=== PATIENT | male | born 1970 | race Caucasian/White ===

== ENCOUNTER 2023-05-27 07:53 | Emergency (ER) | payer BC, SELFPAY ==
[2023-05-27 08:12] VITALS: BP 148/104
[2023-05-27 08:24] VITALS: BMI 33.6
--- NOTE | 2023-05-27 08:30 | ED.CVA ---
History of Present Illness
<ANTHONY Reyes - Last Filed: 05/27/23 12:07>
General
Chief Complaint: CVA/TIA Symptoms
Source: patient
Exam Limitations: none
Time Seen by Provider: 05/27/23 08:20
Onset of Stroke Symptoms
Onset of symptoms known: No
Time pt last seen normal is known: No
Travel History
Have you had any contact with someone who has COVID-19?: No
Do you have any symptoms of coronavirus? Fever > 100 degrees, chills, cough, shortness of breath, sore throat, loss of taste or smell, muscle aches, or headache?: No
History of Present Illness
History of Present Illness:
Patient is a 52-year-old male with previous history of migraines anxiety and high cholesterol presents to the ER for evaluation. Patient reports around 6 AM he woke up and noticed that his left face left neck and left arm was numb and tingly he
also describes visual disturbance. He reports he saw what he describes as a prism out of his left eye he has had different colors of light. This lasted for about 1 hour. The eye disturbance has resolved however he still complains of tingling to
the left face and left neck and arm. He denies any associated neck pain or headaches with this. Denies any upper or lower extremity weakness. Denies any recent trauma chiropractic manipulation. Denies any history of stroke.
He does report there is a history of strokes in his family. he has no hx of CAD/CVA.
Patient presents awake alert no acute distress NIH scale 0. He is nontoxic. Normal labs. CT head negative. Patient symptoms have fully resolved. He does have a history of migraine headaches however has never been seen by neurology. This may be
headache/complicated migraine, ocular migraine. Patient had ultrasound of his carotids bilaterally which showed minimal atherosclerotic plaques within both carotid bulbs causing less than 50% luminal narrowing. case d/c with [facility] who eval pt .
will d/c with ASA 81 mg daily with close oupt f/u by neuro.
Past History
<ANTHONY Reyes - Last Filed: 05/27/23 12:07>
Past History
ED Past Medical History: Other (Anxiety) and Other (Migraines)
ED Past Surgical History: None
Social History
Tobacco: Non-smoker
Alcohol: None
Drug: None
Personal:
Living: with family
Employment: Employed
Family History
Family History: Other (He has a father with an enlarged heart and an aneurysm of his heart. His father had a strokeThere is a family history of diabetes, lung and brain cancer.)
Review of Systems
<ANTHONY Reyes - Last Filed: 05/27/23 12:07>
Review of Systems
Allergies reviewed?: Yes
All Other Systems: ROS reviewed and negative except as documented in HPI and ROS
Constitutional: Reports no symptoms; Denies fever, fatigue or chills
EENT: Reports other (Patient described prism type light from left eye lasted for 1 hour that has since resolved no eye pain)
Respiratory: Reports no symptoms
Cardiac: Reports no symptoms; Denies chest pain or palpitations
ABD/GI: Reports no symptoms
: Reports no symptoms
Musculoskeletal: Reports no symptoms
Skin: Reports no symptoms
Neurological: Reports other (tingling to left face/left arm ); Denies dizzy or headache
Psychiatric: Reports no symptoms
Phy Exam
<ANTHONY Reyes - Last Filed: 05/27/23 12:07>
General Physical Exam
General Presentation: no apparent distress
General age: appears stated age
General Skin: warm and dry
General Habitus: normal
General Mental: alert
General Hydration: appears well hydrated
Eye Exam
Eye Exam: PERRL and EOMI
Eye Exam General: PERRL: bilateral and EOM intact: bilateral
Pupil Exam: Bilateral: round and reactive
Cardiovascular Exam
Cardiovascular Exam: regular rate/rhythm, no murmur and normal peripheral pulses
Pulmonary Exam
Pulmonary Exam: lungs clear and no respiratory distress
Neurological Exam
Neurological Exam: alert and oriented x3
NIH Stroke Score
Level of Consciousness: 0 - Alert
LOC questions: 0-Answers both correctly
LOC Commands: 0-Performs both correctly
Best Gaze: 0-Normal
Visual Gupta: 0=Normal, no visual loss
Facial palsy: 0=Normal, symmetrical
Motor - Right Arm: 0=No drift 10 seconds
Motor - Left Arm: 0=No drift 10 seconds
Motor - Right Le-No drift 5 seconds
Motor - Left Le-No drift 5 seconds
Limb Ataxia: 0-Absent
Sensation: 0-Normal
Best Language: 0-No aphasia
Dysarthria: 0-Normal
Extinction and Inattention: 0-No abnormality
Total Score:: 0
[place] Coma Scale
Eye Opening: Spontaneous
Verbal Response: Oriented
Motor Response: Obeys Commands
GCS Total Score: 15
Cerebellar
Cerebellar Function: normal finger to nose
Musculoskeletal Exam
Musculoskeletal Exam: full ROM
Skin Exam
Skin Exam: normal color and warm/dry
Psychiatric Exam
Psychiatric Exam: normal mood/affect
<Johnny Kerr DO - Last Filed: 05/27/23 10:09>
NIH Stroke Score
Total Score:: 0
[place] Coma Scale
GCS Total Score: 15
Course
<ANTHONY Reyes - Last Filed: 05/27/23 12:07>
Orders/Labs/Results
Orders:
Orders
05/27/23 08:29
CT Head W/o Iv Contrast Urgent
Comment:
Reason For Exam: left sided numbness; vision disturbance
IV Insert/Care/Rem.- Treatment PRN
05/27/23 08:30
Electrocardiogram (*1) Stat
Reason for Study: Other
Other Reason for Exam: chest pain
Cardiac Monitoring- Treatment ONCE
EKG- Treatment ONCE
05/27/23 08:34
Complete Blood Count/With Diff Urgent
Comprehensive Metabolic Panel Urgent
05/27/23 09:27
0.9% Sodium Chloride 1000 ml [Nss] 1,000 ml IV BOLUS
05/27/23 10:15
Vital Signs- Treatment ONCE
Frequency: Once
05/27/23 10:20
Aspirin Chewable [Low Strength Aspirin] 81 mg PO NOW STA
05/27/23 10:21
US Carotid [US Cerebrovascular] Urgent
Comment:
Reason For Exam: left eye visual disturbance w/ tingling to face/ar
Abnormal Lab Results
05/27/23 05/27/23
08:32 08:34
BUN 27 H mg/dl
(9-20)
Glucose 114 H mg/dl
(70-99)
POC Glucose 101 H mg/dl
(70-99)
05/27/23 08:34
05/27/23 08:34
Vital Signs
Initial and Last Documented VS:
Initial Vital Signs
Temp Pulse Resp BP Pulse Ox
98.2 F 69 18 148/104 97
05/27/23 08:12 05/27/23 08:12 05/27/23 08:12 05/27/23 08:12 05/27/23 08:12
Last Documented Vital Signs
Temp Pulse Resp BP Pulse Ox
98.2 F 60 14 126/74 98
05/27/23 10:45 05/27/23 10:45 05/27/23 10:45 05/27/23 10:45 05/27/23 10:45
Manager Gaming consulted with Physician
Manager Gaming consulted with physician?: Yes
Name of Physician Consulted: david
<Johnny Kerr, DO - Last Filed: 05/27/23 10:09>
Orders/Labs/Results
Orders:
Orders
05/27/23 08:29
CT Head W/o Iv Contrast Urgent
Comment:
Reason For Exam: left sided numbness; vision disturbance
IV Insert/Care/Rem.- Treatment PRN
05/27/23 08:30
Electrocardiogram (*1) Stat
Reason for Study: Other
Other Reason for Exam: chest pain
Cardiac Monitoring- Treatment ONCE
EKG- Treatment ONCE
05/27/23 08:34
Complete Blood Count/With Diff Urgent
Comprehensive Metabolic Panel Urgent
05/27/23 09:27
0.9% Sodium Chloride 1000 ml [Nss] 1,000 ml IV BOLUS
05/27/23 10:15
Vital Signs- Treatment ONCE
Frequency: Once
05/27/23 10:20
Aspirin Chewable [Low Strength Aspirin] 81 mg PO NOW STA
05/27/23 10:21
US Carotid [US Cerebrovascular] Urgent
Comment:
Reason For Exam: left eye visual disturbance w/ tingling to face/ar
Abnormal Lab Results
05/27/23 05/27/23
08:32 08:34
BUN 27 H mg/dl
(9-20)
Glucose 114 H mg/dl
(70-99)
POC Glucose 101 H mg/dl
(70-99)
05/27/23 08:34
05/27/23 08:34
Vital Signs
Initial and Last Documented VS:
Initial Vital Signs
Temp Pulse Resp BP Pulse Ox
98.2 F 69 18 148/104 97
05/27/23 08:12 05/27/23 08:12 05/27/23 08:12 05/27/23 08:12 05/27/23 08:12
Last Documented Vital Signs
Temp Pulse Resp BP Pulse Ox
98.2 F 60 14 126/74 98
05/27/23 10:45 05/27/23 10:45 05/27/23 10:45 05/27/23 10:45 05/27/23 10:45
<ANTHONY Reyes - Last Filed: 05/27/23 12:07>
MDM/Problems Addressed
Differential Diagnosis Includes:
Not limited to complicated migraine, paresthesias like likely CVA TIA
MDM/Problems Addressed:
Patient is a 52-year-old male who presented for numbness and tingling to his left face left arm prior to arrival associated with what he describes as a prism type light that he was able to see in his left eye. He had no associated eye pain or
headaches. Visual disturbance resolved patient has mild sensation of numbness and tingling in his left face and left arm while he was here however he had no complaints prior to arrival or while here in the ER for upper or lower extremity weakness.
He presents awake alert no acute distress with a normal neurological exam. No prior history of stroke.
Patient has been nontoxic in no acute distress here in the ER well-appearing. CAT scan negative for acute findings. CAT scan reports the patient had a parietal scalp mass which was removed that was a cyst.
Patient seen and examined with ED physician. Will check US carotid and if neg Patient may be safely discharged home will start ASA. close outpt fu by neuro.
<ANTHONY Reyes - Last Filed: 05/27/23 12:07>
*Radiology
Radiology exam reviewed: radiology read reviewed
*Pulse Oximetry
Patient hypoxic: no
*EKG
Interpreted by ED Provider?: Yes
Comparison EKG: no changes
Heart Rate: 62
Rate: normal
Rhythm: sinus
Ischemia: no ischemia
*Critical Care Note
Total Time (30-74mins, 75-104mins- exclusive of procedures): Not Applicable
ED Attending Note
<ANTHONY Reyes - Last Filed: 05/27/23 12:07>
-
Portions of this chart may have been created with voice recognition software.� Occasional wrong word or��sound alike� substitutions may have occurred due to the inherent limitations of voice recognition software.
<Johnny Kerr DO - Last Filed: 05/27/23 10:09>
ED Attending Note
Patient seen and examined by attending physician: Yes
I performed the substantive portion of visit, reviewed & personally made and approve the management plan that is documented in note by myself or CLIFTON.: Yes
ED Attending Note:
Seen with UTILITY WORKER DRIVER examined independently agree with assessment and plan, suspect radicular versus complicated migraine, nonfocal neurologic exam will start on aspirin, have him follow-up with PCP
Discharge Plan
Departure
Patient Disposition: Home (Routine Discharge)
Date of Disposition: 05/27/23
Time of Disposition: 12:05
Patient with high blood pressure during this ER visit?: Yes
Condition: Fair
Covid-19: Not Applicable
Discharge Problem:
parethesias, visual disturbance
Instructions: Paresthesia (DC), BLOOD PRESSURE
Prescriptions:
No Action
atorvastatin [Lipitor] 10 mg Tablet
10 mg PO DAILY
hydroxyzine HCl 50 mg Tablet
50 mg PO DAILY
pantoprazole [Protonix] 40 mg Tablet,Delayed Release (Dr/Ec)
40 mg PO DAILY
propranolol 80 mg Capsule,Extended Release 24hr
80 mg PO BID
cholecalciferol (vitamin D3) [Vitamin D3] 25 mcg (1,000 unit) Tablet
25 mcg PO DAILY
Referrals:
Win Spears MD [Active] -
Marilyn,Chriss J., DO [Family Provider] -
Activity Restrictions/Additional Instructions:
As discussed please take 1 baby aspirin daily. Follow-up with family doctor in the next several days as well as neurology. Call today to make an appointment soon as possible. Return if any worsening of symptoms.
Interventions
Interventions:
*Risk Screen - Suicide Last Done: 05/27/23 08:12
*Neglect/Abuse Screening Last Done: 05/27/23 08:12
*ED COVID-19 Vaccine History Last Done: 05/27/23 08:12
ED- Cardiac Assessment Last Done: 05/27/23 08:26
ED- Neurological Assessment Last Done: 05/27/23 08:26
ED- Pulmonary Assessment Last Done: 05/27/23 08:26
ED Swallowing Screen Last Done: 05/27/23 10:20
[2023-05-27 08:35] LABS: Glucose - Point of Care 101 mg/dl (70-99)
[2023-05-27 08:43] VITALS: BP 125/82
[2023-05-27 08:59] LABS: % Basophils 0.5 % (0-2); % Eosinophils 0.7 % (0-6); % Immature Granulocytes 0.2 % (0-0.5); % Lymphocytes 21.5 % (20.5-51.1); % Monocytes 6.1 % (1.7-9.3); Absolute Eosinophils 0.1 10^3/uL (0-0.7); Absolute Lymphocytes 1.9 10^3/uL (1.2-3.4); Absolute Monocytes 0.5 10^3/uL (0.1-0.6); Absolute Neutrophils 6.3 10^3/uL (1.4-6.5); Hemoglobin 15.4 g/dL (13.0-18.0); Mean Corp Hgb Conc. 34.2 g/dL (33.0-37.0); Mean Corpuscular Hgb 28.3 pg (27.0-31.0); Mean Corpuscular Volume 82.6 fL (80.0-94.0); Mean Platelet Volume 9.4 fL (7.4-10.4); Nucleated Red Blood Cells % 0 % (-); Platelet Count 375 10^3/uL (130-400); Red Blood Cell Count 5.45 10^6/uL (4.70-6.10); Red Cell Dist. Width 13.8 % (11.5-14.5); White Blood Cell Count 8.8 10^3/uL (4.8-10.8)
[2023-05-27 09:05] LABS: ALT (SGPT) 26 U/L (0-50); AST (SGOT) 21 U/L (17-59); Albumin 4.6 g/dl (3.5-5.0); Alkaline Phosphatase 117 U/L (38-126); Blood Urea Nitrogen 27 mg/dl (9-20); Calcium 9.6 mg/dl (8.4-10.2); Carbon Dioxide 26 mmol/L (22-30); Chloride 100 mmol/L (98-107); Estimated Creatinine Clearance 68 ml/min; Glucose 114 mg/dl (70-99); Potassium 4.9 mmol/L (3.5-5.1); Sodium 136 mmol/L (135-145); Total Bilirubin 0.7 mg/dl (0.2-1.3); Total Protein 7.6 g/dl (6.3-8.2); eGFR > 60.00
[2023-05-27] MEDS: NSS 1000 IV (09:44)
[2023-05-27] MEDS: LOW STRENGTH ASPIRIN 81 MG PO (10:43)
[2023-05-27 10:45] VITALS: BP 126/74
[2023-05-27 12:17] VITALS: BP 126/74
== END 2023-05-27 12:19 | disposition home or self-care (01) ==
LOC: EMR 07:53
PROVIDERS: Nurse Practitioner; EMERGENCY PHYSICIAN Emergency Medicine; FAMILY PHYSICIAN Family Medicine
DX: R20.2 Paresthesia of skin (principal); R20.0 Anesthesia of skin; H53.8 Other visual disturbances; R03.0 Elevated blood-pressure reading, without diagnosis of hypertension
CPT/HCPCS: 99285; 96360; 96361; 70450; 80053; 82962; 85025; 93005; 93880

== ENCOUNTER → 2023-09-30 09:46 | Outpatient (REF) | payer BC, SELFPAY | LOC: RCS 09:46 | PROVIDERS: ATTENDING PHYSICIAN Internal Medicine Cardiovascular Disease; FAMILY PHYSICIAN Family Medicine | DX: R07.2 Precordial pain (principal) | CPT/HCPCS: 93017 ==

== ENCOUNTER 2023-11-11 06:17 | Emergency (ER) | payer BC, SELFPAY ==
[2023-11-11 06:22] VITALS: BP 146/96
[2023-11-11 06:40] VITALS: BMI 34.0
--- NOTE | 2023-11-11 06:50 | ED.GENMED ---
History of Present Illness
General
Chief Complaint: Chest Pain
Time Seen by Provider: 11/11/23 06:28
History of Present Illness
History of Present Illness:
HPI: CP onset 8hrs ago as he rolled over in bed. R lower chest wall into sternum, worse w/ position changes but improved when rolls onto his abdomen. Currently 0/10 pain. Was tender to palpation last night. No SOB. No diaphoresis. No
palpitations. No N/V/D.
EXAM:
GENERAL: Well appearing in no distress
HEENT: Moist oral mucosa
CARDIOVASCULAR: No murmurs, normal heart rate, regular rhythm, No chest wall tenderness
PULMONARY: No respiratory distress, breath sounds are clear and equal
ABDOMEN: Soft with no peritoneal signs, no tenderness
NEUROLOGIC: Excellent strength all extremities, no coordination deficits
PSYCHIATRIC: Appropriate mental status, normal insight and judgement
EXTREMITIES: Nontender, no edema, moves all extremities equally
SKIN: No rash, no lesions
TIME OF INITIAL ENCOUNTER: 7am
NUMBER AND COMPLEXITY OF PROBLEMS ADDRESSED AT THE ENCOUNTER
� Chronic conditions affecting care: GERD, Anxiety
� Acute Exacerbation and/or Progression of Chronic Illness: This is an acute problem but has had a similar episode in the past
� Differential Diagnosis includes: Chest wall pain, noncardiac chest pain, anxiety, ACS less likely, PE
AMOUNT AND/OR COMPLEXITY OF DATA TO BE REVIEWED AND ANALYZED
� I performed an independent evaluation of and my interpretation is:
EKG: Sinus 61, leftward axis deviation, no acute ST abnormality
CT:
X-rays: Chest x-ray unremarkable
Laboratory Studies: Troponin and D-dimer are unremarkable
Other:
� Review of other/old records: The patient has a troponin in 2020 was unremarkable, the patient had a stress test due to chest pain in September and she was at times had no chest pain and no ischemic changes on the EKG at 82% max
predicted also be an indeterminant risk stress test
� Clinical information was obtained by an independent historian: None needed
� Prescriptions/Medications Considered but not given: Considered NSAIDs patient has no further pain
� Further testing considered but not performed:
RISK OF COMPLICATIONS AND/OR MORBIDITY OR MORTALITY OF PATIENT MANAGEMENT
� Social determinants of health affecting care: Lives at home
� Discussion with other providers:
� Escalation of care including admission/observation vs risk of discharge considered: The patient had 8 hours of chest discomfort which was positional in nature and not exertional in nature. He currently has resolution of his
pain and currently appears and feels comfortable. EKG is unremarkable. He had an inconclusive stress test in the recent past. On reassessment at 7:50 AM, the patient seems to have no further pain. He is to follow-up with tank calibrator. Suspect
noncardiac chest pain based on description of his discomfort.
Past History
Past History
ED Past Medical History: Other (Anxiety) and Other (Migraines)
ED Past Surgical History: None
Social History
Tobacco: Non-smoker
Alcohol: None
Drug: None
Personal:
Living: with family
Employment: Employed
Family History
Family History: Other (He has a father with an enlarged heart and an aneurysm of his heart. His father had a strokeThere is a family history of diabetes, lung and brain cancer.)
Phy Exam
Physical Exam
Physical Exam:
See HPI
Scores
Heart Score for Chest Pain Patients
STEMI patient?: Not applicable
Course
Orders/Labs/Results
Orders:
Orders
11/11/23 06:19
Electrocardiogram (*1) Urgent
Reason for Study: Chest Pain
Cardiac Monitoring- Treatment ONCE
EKG- Treatment ONCE
IV Insert/Care/Rem.- Treatment PRN
O2 Therapy [RESP] Urgent
Titrate/Wean O2 to maintain O2 sat greater than (%): 90
Special Instructions: Maintain sats >/=90%
Pulse Ox/spot Check [RESP] Urgent
Quantity: 1
Special Instructions: ON ROOM AIR
11/11/23 06:43
Complete Blood Count/With Diff Urgent
Comprehensive Metabolic Panel Urgent
Troponin I Urgent
11/11/23 07:00
CR Chest - 2 Views Urgent
Comment:
Reason For Exam: cp
11/11/23 07:06
D-Dimer Urgent
Abnormal Lab Results
11/11/23
06:43
WBC 11.2 H 10^3/uL
(4.8-10.8)
Abs Immat Gran (auto) 0.1 H 10^3/uL
(0-0.05)
Absolute Neuts (auto) 8.5 H 10^3/uL
(1.4-6.5)
Neutrophils % 76.5 H %
(42.2-75.2)
Lymphocytes % 17.3 L %
(20.5-51.1)
Glucose 144 H mg/dl
(70-99)
Alkaline Phosphatase 150 H U/L
(38-126)
11/11/23 06:43
11/11/23 06:43
Vital Signs
Initial and Last Documented VS:
Initial Vital Signs
Temp Pulse Resp BP Pulse Ox
97.7 F 63 20 146/96 97
11/11/23 06:22 11/11/23 06:22 11/11/23 06:22 11/11/23 06:22 11/11/23 06:22
Last Documented Vital Signs
Temp Pulse Resp BP Pulse Ox
97.7 F 62 18 130/82 91
11/11/23 06:22 11/11/23 07:00 11/11/23 07:00 11/11/23 07:00 11/11/23 07:00
*Critical Care Note
Total Time (30-74mins, 75-104mins- exclusive of procedures): Not Applicable
ED Attending Note
-
Portions of this chart may have been created with voice recognition software.� Occasional wrong word or��sound alike� substitutions may have occurred due to the inherent limitations of voice recognition software.
Discharge Plan
Departure
Patient Disposition: Home (Routine Discharge)
Date of Disposition: 11/11/23
Time of Disposition: 07:52
Patient with high blood pressure during this ER visit?: Yes
Discharge Problem:
Chest pain
Instructions: Chest Pain CBC Follow Up, BLOOD PRESSURE
Prescriptions:
No Action
hydroxyzine HCl 50 mg Tablet
50 mg PO DAILY
pantoprazole [Protonix] 40 mg Tablet,Delayed Release (Dr/Ec)
40 mg PO DAILY
cholecalciferol (vitamin D3) [Vitamin D3] 25 mcg (1,000 unit) Tablet
25 mcg PO DAILY
atorvastatin 20 mg Tablet
20 mg PO DAILY
propranolol 80 mg Tablet
80 mg PO Daily
Referrals:
Chriss Sanders DO [Family Provider] -
Stand Alone Forms: Return to Work
Activity Restrictions/Additional Instructions:
Return here if worse or other concerns. Follow-up with cardiology. Consider intermittent use of Motrin if pain recurs.
Interventions
Interventions:
*General Assessment Last Done: 11/11/23 06:37
ED- Fall Risk Assessment Last Done: 11/11/23 06:29
*ED COVID-19 Vaccine History Last Done: 11/11/23 06:27
ED- Cardiac Assessment Last Done: 11/11/23 06:29
Discharge Date and Time
Print Language: TONGAN
[2023-11-11 06:58] LABS: % Basophils 0.4 % (0-2); % Eosinophils 0.7 % (0-6); % Immature Granulocytes 0.4 % (0-0.5); % Lymphocytes 17.3 % (20.5-51.1); % Monocytes 4.7 % (1.7-9.3); % Neutrophils 76.5 % (42.2-75.2); Absolute Basophils 0.1 10^3/uL (0-0.2); Absolute Eosinophils 0.1 10^3/uL (0-0.7); Absolute Immature Granulocytes 0.1 10^3/uL (0-0.05); Absolute Lymphocytes 1.9 10^3/uL (1.2-3.4); Absolute Monocytes 0.5 10^3/uL (0.1-0.6); Absolute Neutrophils 8.5 10^3/uL (1.4-6.5); Hematocrit 44.1 % (39.0-52.0); Hemoglobin 15.3 g/dL (13.0-18.0); Mean Corp Hgb Conc. 34.7 g/dL (33.0-37.0); Mean Corpuscular Hgb 28.3 pg (27.0-31.0); Mean Corpuscular Volume 81.5 fL (80.0-94.0); Mean Platelet Volume 9.3 fL (7.4-10.4); Nucleated Red Blood Cells % 0 % (-); Platelet Count 344 10^3/uL (130-400); Red Blood Cell Count 5.41 10^6/uL (4.70-6.10); Red Cell Dist. Width 13.3 % (11.5-14.5); White Blood Cell Count 11.2 10^3/uL (4.8-10.8)
[2023-11-11 07:00] VITALS: BP 130/82
[2023-11-11 07:06] LABS: ALT (SGPT) 46 U/L (0-50); AST (SGOT) 34 U/L (17-59); Albumin 4.8 g/dl (3.5-5.0); Alkaline Phosphatase 150 U/L (38-126); Blood Urea Nitrogen 19 mg/dl (9-20); Calcium 9.8 mg/dl (8.4-10.2); Carbon Dioxide 22 mmol/L (22-30); Chloride 103 mmol/L (98-107); Estimated Creatinine Clearance 82 ml/min; Glucose 144 mg/dl (70-99); Potassium 4.9 mmol/L (3.5-5.1); Sodium 139 mmol/L (135-145); Total Bilirubin 0.7 mg/dl (0.2-1.3); Total Protein 7.6 g/dl (6.3-8.2); eGFR > 60.00
[2023-11-11 07:17] LABS: Troponin I < 0.012 ng/ml
[2023-11-11 07:46] LABS: D-Dimer < 0.27 ug/mlFEU (0.00-0.50)
[2023-11-11 08:18] VITALS: BP 132/80
== END 2023-11-11 08:19 | disposition home or self-care (01) ==
LOC: EMR 06:17
PROVIDERS: Student in an Organized Health Care Education/Training Program; EMERGENCY PHYSICIAN Emergency Medicine; FAMILY PHYSICIAN Family Medicine
DX: R07.89 Other chest pain (principal); R03.0 Elevated blood-pressure reading, without diagnosis of hypertension; F41.9 Anxiety disorder, unspecified; K21.9 Gastro-esophageal reflux disease without esophagitis
CPT/HCPCS: 99284; 71046; 80053; 84484; 85025; 85379; 93005

== ENCOUNTER 2023-11-25 08:55 | Emergency (ER) | payer BC, SELFPAY ==
[2023-11-25 08:59] VITALS: BP 166/92
[2023-11-25 09:30] LABS: % Basophils 0.5 % (0-2); % Eosinophils 0.8 % (0-6); % Immature Granulocytes 0.4 % (0-0.5); % Lymphocytes 21.4 % (20.5-51.1); % Monocytes 5.8 % (1.7-9.3); % Neutrophils 71.1 % (42.2-75.2); Absolute Basophils 0.1 10^3/uL (0-0.2); Absolute Eosinophils 0.1 10^3/uL (0-0.7); Absolute Lymphocytes 2.3 10^3/uL (1.2-3.4); Absolute Monocytes 0.6 10^3/uL (0.1-0.6); Absolute Neutrophils 7.7 10^3/uL (1.4-6.5); Hematocrit 43.3 % (39.0-52.0); Hemoglobin 14.7 g/dL (13.0-18.0); Mean Corp Hgb Conc. 33.9 g/dL (33.0-37.0); Mean Corpuscular Hgb 28.3 pg (27.0-31.0); Mean Corpuscular Volume 83.3 fL (80.0-94.0); Mean Platelet Volume 9.3 fL (7.4-10.4); Nucleated Red Blood Cells % 0 % (-); Platelet Count 348 10^3/uL (130-400); Red Cell Dist. Width 13.5 % (11.5-14.5); White Blood Cell Count 10.8 10^3/uL (4.8-10.8)
[2023-11-25 09:43] LABS: ALT (SGPT) 44 U/L (0-50); AST (SGOT) 34 U/L (17-59); Albumin 4.6 g/dl (3.5-5.0); Alkaline Phosphatase 128 U/L (38-126); Blood Urea Nitrogen 21 mg/dl (9-20); Calcium 9.9 mg/dl (8.4-10.2); Carbon Dioxide 29 mmol/L (22-30); Chloride 99 mmol/L (98-107); Glucose 143 mg/dl (70-99); Potassium 5.1 mmol/L (3.5-5.1); Sodium 138 mmol/L (135-145); Total Bilirubin 0.8 mg/dl (0.2-1.3); Total Protein 7.2 g/dl (6.3-8.2); eGFR > 60.00
[2023-11-25 09:55] LABS: Troponin I < 0.012 ng/ml
[2023-11-25 10:00] VITALS: BP 127/83
--- NOTE | 2023-11-25 10:27 | ED.GENMED ---
History of Present Illness
<Michelle Mayen DO, Resident - Last Filed: 11/25/23 13:02>
General
Chief Complaint: Heart Rate Problem
Source: patient and records
Exam Limitations: none
Time Seen by Provider: 11/25/23 09:06
Nursing documentation reviewed up to this point in time: agreed with
History of Present Illness
History of Present Illness:
Mr. Jaspreet Browning is a 52yo male w pmh anxiety and GERD presenting with heart palpitations and 'deadness' in his L shoulder. He awoke this morning with the 'deadness' and parasthesias in his left shoulder, over the thoracic inlet. He denies pain,
weakness. At 0730, pt took his daily anxiety meds (hydroxyzine, propranolol). While driving to work, pt experienced palpitations, dyspnea, and dizziness. He reports lightheadedness for two days. 10 years ago he had a panic attack while driving and
now experiences similar sx, usually when driving, off and on.
-HENRY, -CP, -fever, -N/V/D, -cough, -extremity swelling.
09/29 - indeterminate stress test - ceased due to knee pain
11/10 - seen in this ED for a sharp chest pain that resolved.
Past History
<Michelle Mayen DO, Resident - Last Filed: 11/25/23 13:02>
Past History
ED Past Medical History: Psychiatric, Other (Anxiety) and Other (Migraines)
ED Past Surgical History: None
Patient has exhibited threatening behavior?: No
Social History
Tobacco: Non-smoker
Alcohol: None
Drug: None
Personal:
Living: with family
Employment: Employed
Family History
Family History: Other (He has a father with an enlarged heart and an aneurysm of his heart. His father had a strokeThere is a family history of diabetes, lung and brain cancer.)
Review of Systems
<Michelle Mayen DO, Resident - Last Filed: 11/25/23 13:02>
Review of Systems
Allergies reviewed?: Yes
All Other Systems: ROS reviewed and negative except as documented in HPI and ROS
Phy Exam
<Michelle Mayen DO, Resident - Last Filed: 11/25/23 13:02>
General Physical Exam
General Presentation: mild distress
General age: appears stated age
General Skin: warm and dry
General Mental: anxious
General Hydration: appears well hydrated
ENT Exam
ENT Exam: normocephalic
Additional ENT: bogginess over L thoracic inlet, L posterior scalene hypertonicity
Cardiovascular Exam
Cardiovascular Exam: no edema, no gallop, no murmur, normal peripheral pulses, bradycardia and no carotid bruit
Heart Sounds: distant
Pulmonary Exam
Pulmonary Exam: lungs clear, no respiratory distress, no rales, chest non tender, no rhonchi, no wheezing and no cough
Gastrointestinal Exam
Gastrointestinal Exam: normal bowel sounds, non tender, soft, no organomegaly and non distended
Neurological Exam
Neurological Exam: alert, oriented x3, CN II-XII intact, normal reflexs and no sensory deficits
Skin Exam
Skin Exam: normal color, warm/dry and no rash
Psychiatric Exam
Psychiatric Exam: anxious
Course
<Michelle Mayen DO, Resident - Last Filed: 11/25/23 13:02>
Orders/Labs/Results
Orders:
Orders
11/25/23 08:55
Electrocardiogram (*1) Urgent
Reason for Study: Palpitations
EKG- Treatment ONCE
11/25/23 09:06
Cardiac Monitoring- Treatment ONCE
IV Insert/Care/Rem.- Treatment PRN
O2 Therapy [RESP] Urgent
Titrate/Wean O2 to maintain O2 sat greater than (%): 90
Special Instructions: Maintain sats >/=90%
Pulse Ox/spot Check [RESP] Urgent
Quantity: 1
Special Instructions: ON ROOM AIR
11/25/23 09:15
Complete Blood Count/With Diff Urgent
Comprehensive Metabolic Panel Urgent
TSH Reflex To Free T4 Urgent
Comment: ADD ON
Troponin I Urgent
11/25/23 10:26
Ibuprofen [Motrin] 400 mg PO NOW STA
11/25/23 10:43
Add On- LAB Urgent
Tests Added?: TSH w/ reflex T4
Abnormal Lab Results
11/25/23
09:15
Absolute Neuts (auto) 7.7 H 10^3/uL
(1.4-6.5)
BUN 21 H mg/dl
(9-20)
Glucose 143 H mg/dl
(70-99)
Alkaline Phosphatase 128 H U/L
(38-126)
11/25/23 09:15
11/25/23 09:15
Vital Signs
Initial and Last Documented VS:
Initial Vital Signs
Temp Pulse Resp BP Pulse Ox
97.8 F 49 20 166/92 98
11/25/23 08:59 11/25/23 08:59 11/25/23 08:59 11/25/23 08:59 11/25/23 08:59
Last Documented Vital Signs
Temp Pulse Resp BP Pulse Ox
97.8 F 57 20 119/82 94
11/25/23 08:59 11/25/23 12:30 11/25/23 12:30 11/25/23 12:00 11/25/23 12:30
<Carlos Cerda MD - Last Filed: 11/26/23 09:42>
Orders/Labs/Results
Orders:
Orders
11/25/23 08:55
Electrocardiogram (*1) Urgent
Reason for Study: Palpitations
EKG- Treatment ONCE
11/25/23 09:06
Cardiac Monitoring- Treatment ONCE
IV Insert/Care/Rem.- Treatment PRN
O2 Therapy [RESP] Urgent
Titrate/Wean O2 to maintain O2 sat greater than (%): 90
Special Instructions: Maintain sats >/=90%
Pulse Ox/spot Check [RESP] Urgent
Quantity: 1
Special Instructions: ON ROOM AIR
11/25/23 09:15
Complete Blood Count/With Diff Urgent
Comprehensive Metabolic Panel Urgent
TSH Reflex To Free T4 Urgent
Comment: ADD ON
Troponin I Urgent
11/25/23 10:26
Ibuprofen [Motrin] 400 mg PO NOW STA
11/25/23 10:43
Add On- LAB Urgent
Tests Added?: TSH w/ reflex T4
Abnormal Lab Results
11/25/23
09:15
Absolute Neuts (auto) 7.7 H 10^3/uL
(1.4-6.5)
BUN 21 H mg/dl
(9-20)
Glucose 143 H mg/dl
(70-99)
Alkaline Phosphatase 128 H U/L
(38-126)
11/25/23 09:15
11/25/23 09:15
Vital Signs
Initial and Last Documented VS:
Initial Vital Signs
Temp Pulse Resp BP Pulse Ox
97.8 F 49 20 166/92 98
11/25/23 08:59 11/25/23 08:59 11/25/23 08:59 11/25/23 08:59 11/25/23 08:59
Last Documented Vital Signs
Temp Pulse Resp BP Pulse Ox
97.8 F 57 20 119/82 94
11/25/23 08:59 11/25/23 12:30 11/25/23 12:30 11/25/23 12:00 11/25/23 12:30
<Michelle Mayen DO, Resident - Last Filed: 11/25/23 13:02>
MDM/Problems Addressed
Differential Diagnosis Includes:
acute coronary syndrome, PE, cardiac arrhythmia, hypothyroidism
MDM/Problems Addressed:
Mr. Jaspreet Browning is a 52yo male w pmh anxiety and GERD presenting with heart palpitations and 'deadness' in his L shoulder.
Concern for ACS is low due to no signs of ischemia on ECG and undetectable troponins.
Concern for cardiac arrhythmia low at this time due to sinus rhythm on ECG.
Concern for PE is low because of breath sounds throughout lungs, no extremity swelling, no tachycardia.
Hypothyroidism unlikely as cause of palpitations due to normal TSH 1.47.
Chronic conditions affecting care: Psychiatric illness
Acute Exacerbation and/or Progression of Chronic Illness: Psychiatric illness
<Michelle Mayen DO, Resident - Last Filed: 11/25/23 13:02>
*Pulse Oximetry
Patient hypoxic: no
*EKG
Interpreted by ED Provider?: Yes
Interpretation: abnormal
Comparison EKG: changes noted
Heart Rate: 43
Rate: bradycardiac
Rhythm: sinus
Interval: normal QT interval and normal MT interval
QRS Pattern: normal QRS
Ischemia: no ischemia
*Brush Clearer Surveying Interpretation
Rate: bradycardiac
Interpretation: abnormal
Rhythm: sinus
*Critical Care Note
Total Time (30-74mins, 75-104mins- exclusive of procedures): Not Applicable
Data Reviewed
Review of Other/Old Records Reveals: Labs, Records, Testing and Discharge Summary
Source: patient and records
ED Attending Note
<Michelle Mayen DO, Resident - Last Filed: 11/25/23 13:02>
-
Portions of this chart may have been created with voice recognition software.� Occasional wrong word or��sound alike� substitutions may have occurred due to the inherent limitations of voice recognition software.
<Carlos Cerda MD - Last Filed: 11/26/23 09:42>
ED Attending Note
Patient seen and examined by attending physician: Yes
I performed a history and physical exam of patient and discussed management with resident, I reviewed resident's note and agree with documented findings and plan of care.: Yes
ED Attending Note:
Pt presents to ED secondary to secondary to sudden onset of sob and palpations, along with numbness sensation of his left shoulder while driving to work this morning. Denies chest pain/diaphoresis/nausea/dizziness. Pt with history of anxiety,
unfortunately has experienced number of similar symptoms in the past, especially in the morning when driving to work. Denies recent travel/surgery. Denies recent illness. Denies recent change in medications/diet. Pt reports having had breakfast this
morning. Denies previous heart disease nor family history of heart disease. Denies history of blood clots.
General: well nourished male, in no acute distress. afebrile
Heent: nc/at. eomi
Heart: rrr. no murmur
Lungs: cta
Abd: soft, and nontender.
Neuro: aao x 3. no focal neurological deficit.
Skin: warm to touch. no rash.
Psych: pleasant and cooperative.
Pt reports that all his symptoms have resolved during observation. History and exam inconsistent with ACS. Unremarkable work up including d-dimer, TSH. Pt also has recent evaluation with his employment supervisor due to nonspecific CP. Advised PCP/cardiology
f/u with any further concerns.
Discharge Plan
Departure
Patient Disposition: Home (Routine Discharge)
Date of Disposition: 11/25/23
Time of Disposition: 12:50
Patient with high blood pressure during this ER visit?: Yes
Discharge Problem:
Anxiety, Acute neck pain
Instructions: Cognitive-Behavioral Therapy, Generalized Anxiety Disorder (DC), Panic Attack ED
Prescriptions:
No Action
hydroxyzine HCl 50 mg Tablet
50 mg PO DAILY
pantoprazole [Protonix] 40 mg Tablet,Delayed Release (Dr/Ec)
40 mg PO DAILY
cholecalciferol (vitamin D3) [Vitamin D3] 25 mcg (1,000 unit) Tablet
25 mcg PO DAILY
atorvastatin 20 mg Tablet
20 mg PO DAILY
propranolol 80 mg Tablet
80 mg PO Daily
Referrals:
Chriss Sanders DO [Family Provider] -
Activity Restrictions/Additional Instructions:
Please follow-up with Dr. Sanders to discuss anxiety symptoms and possible medication adjustment from propranolol.
Please follow-up with your employment supervisor regarding the palpitations and low heart rate.
Please return to ED if symptoms worsen or do not go away. These include palpitations, shortness of breath, chest pain or pressure.
Interventions
Interventions:
*Risk Screen - Suicide Last Done: 11/25/23 08:59
*General Assessment Last Done: 11/25/23 08:59
*Neglect/Abuse Screening Last Done: 11/25/23 08:59
ED- Fall Risk Assessment Last Done: 11/25/23 09:12
*ED COVID-19 Vaccine History Last Done: 11/25/23 09:12
*Nursing Disposition Last Done: 11/25/23 13:06
ED- Cardiac Assessment Last Done: 11/25/23 09:12
ED- Pulmonary Assessment Last Done: 11/25/23 09:12
Discharge Date and Time
Discharge Date/Time: 11/25/23 13:06
Print Language: [place]
[2023-11-25] MEDS: MOTRIN 400 MG PO (10:29)
[2023-11-25 11:00] VITALS: BP 129/80
[2023-11-25 12:00] VITALS: BP 119/82
[2023-11-25 12:47] LABS: TSH Reflex To Free T4 1.47 uIU/ml (0.47-4.68)
== END 2023-11-25 13:06 | disposition home or self-care (01) ==
LOC: EMR 08:55
PROVIDERS: Emergency Medicine; EMERGENCY PHYSICIAN Emergency Medicine; FAMILY PHYSICIAN Family Medicine
DX: F41.9 Anxiety disorder, unspecified (principal); M54.2 Cervicalgia; K21.9 Gastro-esophageal reflux disease without esophagitis; Z83.3 Family history of diabetes mellitus
CPT/HCPCS: 99283; 80053; 84443; 84484; 85025; 93005

== ENCOUNTER 2024-04-24 08:25 | Emergency (ER) | payer BC, SELFPAY ==
[2024-04-24 08:30] VITALS: BP 146/97
[2024-04-24 09:10] VITALS: BMI 32.9
[2024-04-24 09:23] VITALS: BP 127/85
--- NOTE | 2024-04-24 09:23 | ED.GENMED ---
History of Present Illness
General
Chief Complaint: Dizziness
Source: patient
Time Seen by Provider: 04/24/24 09:07
History of Present Illness
History of Present Illness:
53-year-old male presents to the emergency room complaining of feeling lightheaded. Patient also feels like his heart was beating more rapidly. He denies any sense of vertigo or movement. He denies chest pain, shortness of breath, abdominal pain,
nausea or vomiting. Patient began taking a new medication, BuSpar for anxiety. His doctor recommended he come to the emergency room to get checked out.
Past History
Past History
ED Past Medical History: Psychiatric, Other (Anxiety) and Other (Migraines)
ED Past Surgical History: None
Patient has exhibited threatening behavior?: No
Social History
Tobacco: Non-smoker
Alcohol: None
Drug: None
Personal:
Living: with family
Employment: Employed
Family History
Family History: Other (He has a father with an enlarged heart and an aneurysm of his heart. His father had a strokeThere is a family history of diabetes, lung and brain cancer.)
Phy Exam
Physical Exam
Physical Exam:
General: Awake, Alert, Oriented X3. No acute distress.
Vitals: unremarkable
Head: Atraumatic
Eyes: Pupils equal, EOMI
Throat: Airway intact, no exudates
Neck: Trachea midline
Lungs: Clear and equal b/l
Heart: Regular rate, no murmurs
Abd: Soft, Nontender, No pulsatile mass
Neuro: Nonfocal
Skin: Warm, dry, no rash
Extremities: pulses equal b/l, no edema
Course
Orders/Labs/Results
Orders:
Orders
04/24/24 08:32
Electrocardiogram (*1) Urgent
Reason for Study: Tachycardia
EKG- Treatment ONCE
04/24/24 09:21
0.9% Sodium Chloride 500 ml [Nss] 500 ml IV BOLUS
04/24/24 09:25
Basic Metabolic Panel Urgent
Complete Blood Count/With Diff Urgent
Magnesium Urgent
TSH Reflex To Free T4 Urgent
Abnormal Lab Results
04/24/24
09:25
Absolute Neuts (auto) 7.6 H 10^3/uL
(1.4-6.5)
Neutrophils % 78.7 H %
(42.2-75.2)
Lymphocytes % 14.9 L %
(20.5-51.1)
Glucose 111 H mg/dl
(70-99)
04/24/24 09:25
04/24/24 09:25
Vital Signs
Initial and Last Documented VS:
Initial Vital Signs
Temp Pulse Resp BP Pulse Ox
97.8 F 125 18 146/97 99
04/24/24 08:30 04/24/24 08:30 04/24/24 08:30 04/24/24 08:30 04/24/24 08:30
Last Documented Vital Signs
Temp Pulse Resp BP Pulse Ox
97.8 F 102 21 125/90 96
04/24/24 08:30 04/24/24 11:30 04/24/24 11:30 04/24/24 11:00 04/24/24 11:30
MDM/Problems Addressed
Differential Diagnosis Includes:
dehydration, medication rx, anemia,
MDM/Problems Addressed:
Patient presents with sensation of lightheadedness. He denies any true vertigo. Workup here is unremarkable. Suspect his symptoms are related to perhaps his medication and or anxiety. Patient stable for discharge home. I recommended he contact
the doctor who prescribed his medication to determine if he can change it up.
*Pulse Oximetry
Patient hypoxic: no
*EKG
Interpreted by ED Provider?: Yes
Heart Rate: 112
Rate: tachycardiac
Rhythm: sinus tachycardia
[place]: normal axis
Interval: first degree heart block
QRS Pattern: normal QRS
Ischemia: no ischemia
*Dog Handler Interpretation
Rate: tachycardiac
Interpretation: abnormal
Rhythm: sinus tachycardia
*Critical Care Note
Total Time (30-74mins, 75-104mins- exclusive of procedures): Not Applicable
ED Attending Note
-
Portions of this chart may have been created with voice recognition software.� Occasional wrong word or��sound alike� substitutions may have occurred due to the inherent limitations of voice recognition software.
Discharge Plan
Departure
Patient Disposition: Home (Routine Discharge)
Date of Disposition: 04/24/24
Time of Disposition: 11:19
Patient with high blood pressure during this ER visit?: No
Condition: Good
Discharge Problem:
Dizziness, Palpitations
Instructions: Palpitations ED, Dizziness
Prescriptions:
No Action
hydroxyzine HCl 50 mg Tablet
50 mg PO DAILY
pantoprazole [Protonix] 40 mg Tablet,Delayed Release (Dr/Ec)
40 mg PO DAILY
cholecalciferol (vitamin D3) [Vitamin D3] 25 mcg (1,000 unit) Tablet
25 mcg PO DAILY
atorvastatin 20 mg Tablet
20 mg PO DAILY
propranolol 80 mg Tablet
80 mg PO Daily
Referrals:
Chriss Sanders DO [Family Provider] -
Stand Alone Forms: Return to Work
Activity Restrictions/Additional Instructions:
Please follow up with your primary care provider.
Interventions
Interventions:
*Risk Screen - Suicide Last Done: 04/24/24 08:30
*General Assessment Last Done: 04/24/24 08:30
*Neglect/Abuse Screening Last Done: 04/24/24 08:30
ED- Fall Risk Assessment Last Done: 04/24/24 09:11
*ED COVID-19 Vaccine History Last Done: 04/24/24 08:30
*Nursing Disposition Last Done: 04/24/24 11:33
ED- Neurological Assessment Last Done: 04/24/24 09:11
ED- Cardiac Assessment Last Done: 04/24/24 09:11
ED Swallowing Screen Last Done: 04/24/24 11:33
Discharge Date and Time
Discharge Date/Time: 04/24/24 11:46
Print Language: [place]
[2024-04-24] MEDS: NSS 500 IV (09:24)
[2024-04-24 09:38] LABS: % Basophils 0.3 % (0-2); % Eosinophils 0.2 % (0-6); % Immature Granulocytes 0.2 % (0-0.5); % Lymphocytes 14.9 % (20.5-51.1); % Monocytes 5.7 % (1.7-9.3); % Neutrophils 78.7 % (42.2-75.2); Absolute Lymphocytes 1.4 10^3/uL (1.2-3.4); Absolute Monocytes 0.6 10^3/uL (0.1-0.6); Absolute Neutrophils 7.6 10^3/uL (1.4-6.5); Hematocrit 47.6 % (39.0-52.0); Hemoglobin 16.2 g/dL (13.0-18.0); Mean Corpuscular Hgb 28.7 pg (27.0-31.0); Mean Corpuscular Volume 84.4 fL (80.0-94.0); Mean Platelet Volume 9.4 fL (7.4-10.4); Nucleated Red Blood Cells % 0 % (-); Platelet Count 331 10^3/uL (130-400); Red Blood Cell Count 5.64 10^6/uL (4.70-6.10); Red Cell Dist. Width 14.2 % (11.5-14.5); White Blood Cell Count 9.6 10^3/uL (4.8-10.8)
[2024-04-24 10:00] VITALS: BP 123/84
[2024-04-24 10:04] LABS: Blood Urea Nitrogen 15 mg/dl (9-20); Calcium 9.7 mg/dl (8.4-10.2); Carbon Dioxide 28 mmol/L (22-30); Chloride 101 mmol/L (98-107); Estimated Creatinine Clearance 64 ml/min; Glucose 111 mg/dl (70-99); Magnesium 2.2 mg/dl (1.6-2.3); Potassium 4.2 mmol/L (3.5-5.1); Sodium 138 mmol/L (135-145); eGFR > 60.00
[2024-04-24 10:33] LABS: TSH Reflex To Free T4 0.97 uIU/ml (0.47-4.68)
[2024-04-24 11:00] VITALS: BP 125/90
== END 2024-04-24 11:46 | disposition home or self-care (01) ==
LOC: EMR 08:25
PROVIDERS: EMERGENCY PHYSICIAN Emergency Medicine; FAMILY PHYSICIAN Family Medicine
DX: R42 Dizziness and giddiness (principal); R00.2 Palpitations
CPT/HCPCS: 99284; 96360; 96361; 80048; 83735; 84443; 85025; 93005

== ENCOUNTER → 2024-12-17 07:05 | Outpatient (REF) | payer BC, SELFPAY | LOC: MRI 07:05 | PROVIDERS: ATTENDING PHYSICIAN Family Medicine | DX: S46.001A Unspecified injury of muscle(s) and tendon(s) of the rotator cuff of right shoulder, initial encounter (principal) | CPT/HCPCS: 73221 ==

== ENCOUNTER → 2025-02-23 09:41 | Outpatient (REF) | payer BC, SELFPAY | LOC: RAD 09:41 | PROVIDERS: ATTENDING PHYSICIAN Specialist; FAMILY PHYSICIAN Family Medicine | DX: M25.511 Pain in right shoulder (principal); M19.011 Primary osteoarthritis, right shoulder | CPT/HCPCS: 73200 ==